=== PATIENT | male | born 1995 | race Caucasian/White ===

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

== ENCOUNTER 2017-08-27 15:39 | Emergency (ER) | payer OTHER ==
[~2017-08-27] VITALS: Ht 160 cm; Wt 100.0 kg
[~2017-08-27 15:39] MED LIST changes: +ADV250INH INH; -METHACHOLINE KIT (J7674) INH ONE; +TYLE500T78 PO; +VENTAER IN
--- NOTE | 2017-08-27 17:09 | REP ---
CT Head without contrast HISTORY: Headache COMPARISON: 10/16/2016 There is no intraparenchymal hemorrhage, acute infarct, mass or midline shift. The ventricular system is normal in appearance. There is no extra cerebral collection. There is no fracture. The visualized sinuses are clear. IMPRESSION: There is no intracranial lesion. Signed by Jesus Alberto Hong MD 08/27/2017 05:01 P
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
[2017-08-27] MEDS ORDERED: CYCLOBENZAPRINE 10 MG TAB PO ONE (17:30)
[2017-08-27] MEDS ORDERED: ACETAMINOPHEN 325 MG TAB PO ONE (17:30)
[2017-08-27] MEDS ORDERED: IBUPROFEN 800 MG TAB PO ONE (17:30)
[2017-08-27] MEDS ORDERED: IBUP80TA PO (17:40)
[2017-08-27] MEDS ORDERED: CYCL10TA PO (17:40)
[2017-08-27 17:41] VITALS: BP 131/69
== END 2017-08-27 17:45 | disposition home or self-care (01) ==
LOC: M ED 15:39
DX: Z04.1 Encounter for examination and observation following transport accident (principal); S09.90XA Unspecified injury of head, initial encounter; S13.4XXA Sprain of ligaments of cervical spine, initial encounter; V43.52XA Car driver injured in collision with other type car in traffic accident, initial encounter; Y92.410 Unspecified street and highway as the place of occurrence of the external cause; Y93.89 Activity, other specified; Y99.8 Other external cause status; J45.909 Unspecified asthma, uncomplicated; Z79.51 Long term (current) use of inhaled steroids

== ENCOUNTER 2017-09-14 14:23 | Emergency (ER) | payer OTHER ==
[~2017-09-14] VITALS: Ht 160 cm; Wt 100.0 kg
[2017-09-14 14:23] VITALS: BP 110/78
[~2017-09-14 14:23] MED LIST changes: +CYCL10TA PO; +IBUP80TA PO
[2017-09-14] MEDS ORDERED: TYLE500T78 PO (14:30)
[2017-09-14] MEDS ORDERED: IBUP80TA PO (16:14)
== END 2017-09-14 16:24 | disposition home or self-care (01) ==
LOC: M ED 14:23
DX: J03.90 Acute tonsillitis, unspecified (principal); Z87.891 Personal history of nicotine dependence